=== PATIENT | female | born 1995 | race Two or more races ===

== ENCOUNTER 2025-03-12 05:55 | Day surgery (SDC) | payer OTHER ==
[2025-02-20 10:39] VITALS: BP 119/79
[2025-02-20 10:46] LABS: HEMATOCRIT 35.1 % (36.0-45.00); HEMOGLOBIN 11.5 g/dL (12.0-15.00); MEAN CELL VOLUME 77.4 fL (80.00-100.00); MEAN CORPUSCULAR HEMOGLOBIN 25.4 pg (27.00-32.0); MEAN CORPUSCULAR HGB CONC 32.8 g/dl (32.0-36.0); PLATELET COUNT 328 K/uL (150-450); RED BLOOD COUNT 4.54 M/uL (4.00-6.00)
[2025-02-20 10:52] LABS: PH,URINE 5.5 (5.0-8.0); URINE APPEARANCE Clear; URINE BILIRRUBIN Negative (NEGATIVE); URINE BLOOD Small; URINE COLOR Yellow; URINE GLUCOSE Negative (NEGATIVE); URINE KETONE Negative (NEGATIVE); URINE LEUKOCYTE Negative; URINE NITRATE Negative; URINE PROTEIN Negative (NEGATIVE); URINE UROBILINOGEN 0.2 E.U./dl
[2025-02-20 10:56] LABS: URINE BACTERIA 26.9 uL (0.0-1933); URINE EPITHELIAL CELLS 5.5 uL (0.0-38.8); URINE RBC 23.2 uL (0.0-20.8)
[2025-02-20 11:04] LABS: INR 0.95; PARTIAL THROMBOPLASTIN TIME 27.8 SECONDS (22.0-34.0); PROTHROMBIN TIME 10.4 SECONDS (9.0-11.5)
[2025-02-20 11:38] LABS: ALBUMIN 3.6 gm/dL (3.4-5.0); BILIRUBIN TOTAL 0.27 mg/dL (0.3-1.2); CALCIUM 9.2 mg/dL (8.5-10.1); CREATININE SERUM 0.79 mg/dL (0.55-1.02); GFR 84.88; GLOBULINA 3.5 G/DL (2.4-3.5); POTASSIUM 4.71 mEq/L (3.5-5.1); TOTAL PROTEIN 7.1 gm/dL (6.4-8.2)
[~2025-03-12] VITALS: Ht 157.5 cm; Wt 85.7 kg
[~2025-03-12 05:55] MED LIST: CLONAZEPAM0.5 MG PO; INDERAL LA80 MG PO; PROZAC10 MG PO
[2025-03-12] MEDS ORDERED: POVIDONE-IODINE 118 ML BOTT TOP ONE (09:09)
[2025-03-12] MEDS ORDERED: KETOROLAC TROMETHAMINE 30 MG VIAL IV STA (10:53)
[2025-03-12] MEDS ORDERED: KETOROLAC TROMETHAMINE 30 MG VIAL ONE (10:57)
[2025-03-12] MEDS ORDERED: RINGERS SOLUTION,LACTATED 1,000 ML IV SCH (11:00)
== END 2025-03-12 12:55 | disposition home or self-care (01) ==
LOC: CIR.AMB 05:55
PROVIDERS: ATTEND Student in an Organized Health Care Education/Training Program
DX: N84.0 Polyp of corpus uteri (principal); D25.1 Intramural leiomyoma of uterus; N93.8 Other specified abnormal uterine and vaginal bleeding

== ENCOUNTER 2025-10-27 09:00 | Inpatient (IN) | payer OTHER ==
[2025-10-16 11:44] LABS: URINE APPEARANCE Clear; URINE BILIRRUBIN Negative (NEGATIVE); URINE BLOOD Small; URINE COLOR Dark Yellow; URINE GLUCOSE Negative (NEGATIVE); URINE KETONE Trace (NEGATIVE); URINE LEUKOCYTE Negative; URINE NITRATE Negative; URINE PROTEIN Trace (NEGATIVE); URINE UROBILINOGEN 0.2 E.U./dl
[2025-10-16 11:44] LABS: BASO % 0.3 % (0.1-1.2); EOS # 0.11 (0.04-0.54); EOS % 1.9 % (0.7-7.0); LYMPH # 1.92 (1.18-3.74); LYMPH % 32.9 % (19.3-53.1); MEAN PLATELET VOLUME 9.30 fl (9.4-12.4); MONO # 0.34 (0.24-0.82); MONO % 5.8 % (4.7-12.5); NEUT # 3.43 (1.56-6.13); NEUT % 58.9 % (34.0-71.1); RED CELL DISTRIBUTION WIDTH 13.6 % (11.6-14.4)
[2025-10-16 11:48] VITALS: BP 117/77
[2025-10-16 11:48] LABS: URINE EPITHELIAL CELLS 84.0 uL (0.0-38.8); URINE RBC 50.1 uL (0.0-20.8); URINE WBC 27.1 uL (0.0-23.2)
[2025-10-16 11:54] LABS: INR 0.98
[2025-10-16 11:59] LABS: URINE CAST 1.27 uL (0.0-1.40)
[2025-10-16 12:00] LABS: URINE CRYSTALS FEW /HPF; URINE MUCUS HEAVY
[2025-10-16 12:12] LABS: ALT/SGPT 29.0 U/L (12-78); AST/SGOT 13.0 U/L (15-37); BILIRUBIN TOTAL 0.34 mg/dL (0.3-1.2); BUN CREA RATIO 19.0 (7.0-25.0); CREATININE SERUM 0.79 mg/dL (0.55-1.02); GFR 84.34; GLOBULINA 3.6 G/DL (2.4-3.5); GLUCOSE FASTING 94.0 mg/dL (65-100); OSMOLALITY SERUM 280.0 MOSM/KG (275-295)
[~2025-10-27] VITALS: Ht 157.5 cm; Wt 85.3 kg
[2025-10-27] MEDS ORDERED: CEFAZOLIN SODIUM 1,000 MG VIAL ONE (09:46)
[2025-10-27] MEDS ORDERED: VASOPRESSIN 20 UNITS/ML VIAL ONE (13:12)
[2025-10-27] MEDS ORDERED: TRANEXAMIC ACID 100MG/1ML (1000MG) AMPUL ONE (13:15)
[2025-10-27] MEDS ORDERED: METHYLENE BLUE 10MG/ML 10 ML AMPUL IV ONE (15:15)
[2025-10-27] MEDS ORDERED: SUGAMMADEX SODIUM 200 MG/2 ML VIAL IV ONE (15:47)
[2025-10-27] MEDS ORDERED: RINGERS SOLUTION,LACTATED 1,000 ML IV SCH (17:00)
[2025-10-27] MEDS ORDERED: ONDANSETRON HCL 2 MG/ML VIAL ONE ×2 (17:38→17:54)
[2025-10-27] MEDS ORDERED: KETOROLAC TROMETHAMINE 30 MG VIAL ONE (17:54)
[2025-10-27] MEDS ORDERED: MORPHINE SULFATE 4 MG/ML VIAL IV SCH (18:00)
[2025-10-27] MEDS ORDERED: ACETAMINOPHEN 500 MG GEL..CAP PO SCH (18:00)
[2025-10-27] MEDS ORDERED: KETOROLAC TROMETHAMINE 30 MG VIAL IV SCH (18:00)
[2025-10-27] MEDS ORDERED: ACETAMINOPHEN 500 MG GEL..CAP PO ONE (19:24)
[2025-10-27 22:24] VITALS: BP 111/72
[2025-10-28] VITALS: BP 111/69
[2025-10-28 06:49] LABS: BASO % 0.2 % (0.1-1.2); EOS # 0.05 (0.04-0.54); EOS % 0.6 % (0.7-7.0); LYMPH # 2.11 (1.18-3.74); LYMPH % 24.4 % (19.3-53.1); MEAN PLATELET VOLUME 9.80 fl (9.4-12.4); MONO # 0.54 (0.24-0.82); MONO % 6.3 % (4.7-12.5); NEUT # 5.89 (1.56-6.13); NEUT % 68.2 % (34.0-71.1); RED CELL DISTRIBUTION WIDTH 13.7 % (11.6-14.4)
[2025-10-28 08:11] VITALS: BP 104/69
== END 2025-10-28 08:48 | disposition home or self-care (01) | DRG 743 ==
LOC: CIR.AMB 09:00 → OB/GYN 18:41
PROVIDERS: ADMIT Student in an Organized Health Care Education/Training Program; ATTEND Student in an Organized Health Care Education/Training Program
PROC: 8E0W4CZ Robotic Assisted Procedure of Trunk Region, Percutaneous Endoscopic Approach (ICD-10-PCS; 2025-10-27)
PROC: 3E1P88Z Irrigation of Female Reproductive using Irrigating Substance, Via Natural or Artificial Opening Endoscopic (ICD-10-PCS; 2025-10-27)
PROC: 0UB94ZZ Excision of Uterus, Percutaneous Endoscopic Approach (ICD-10-PCS; principal; 2025-10-27 07:00)
DX: D25.1 Intramural leiomyoma of uterus (principal); N92.1 Excessive and frequent menstruation with irregular cycle; R10.20 Pelvic and perineal pain unspecified side; N94.4 Primary dysmenorrhea
CPT/HCPCS: 58545; 58350; S2900